=== PATIENT | female | born 1995 | race Caucasian/White ===

== ENCOUNTER 2016-10-28 12:13 | Emergency (ER) ==
[2016-10-28 12:19] VITALS: BP 133/77
[2016-10-28 12:24] LABS: URINE CULTURE PL NEEDED? NO; URINE SOURCE CLEAN CATCH
[2016-10-28 12:31] LABS: BILIRUBIN URINE NEGATIVE (NEGATIVE); BLOOD URINE 4+ (NEGATIVE); GLUCOSE URINE NEGATIVE (NEGATIVE); LEUKOCYTES URINE 1+ (NEGATIVE); NITRITE URINE NEGATIVE (NEGATIVE); PROTEIN URINE TRACE mg/dL (NEGATIVE); UROBILINOGEN URINE NORMAL
[2016-10-28 12:32] LABS: CLARITY CLEAR (CLEAR); COLOR YELLOW
[2016-10-28 12:41] LABS: URINE EPITHELIAL CELLS >10 /HPF (<10); URINE RBC TNTC /HPF (<10); URINE WBC <10 /HPF (<10)
== END 2016-10-28 18:10 | disposition left against medical advice (07) ==
LOC: P.ED 12:13
DX: N93.9 Abnormal uterine and vaginal bleeding, unspecified (principal)
CPT/HCPCS: 81001; 81025

== ENCOUNTER 2017-01-07 06:40 | Emergency (ER) ==
--- NOTE | 2017-01-07 07:30 | PROVIDER DOCUMENTATION ---
HPI-Neurological Disorder - General Chief Complaint: Syncope Stated Complaint: seizure like activity Time Seen by Provider: 01/07/17 07:08 Allergies/Adverse Reactions: Patient Allergies Allergy/AdvReac Type Severity Reaction Status Date / Time Iodinated Contrast Media - Allergy Severe HIVES Verified 07/17/16 19:29 Oral and morphine Allergy Intermediate HIVES Verified 07/17/16 19:29 cephalexin monohydrate * AdvReac VOMITING Verified 07/17/16 19:29 [From Keflex] Home Medications: Home Medication List Medication Instructions Recorded Confirmed Last Taken Type Aripiprazole 5 mg PO DAILY 01/07/17 01/07/17 01/06/17 07:00 History 5 MG Clonazepam 1 mg PO HS 01/07/17 01/07/17 01/06/17 20:00 History 1 MG Fluoxetine [Prozac] 10 mg PO DAILY 01/07/17 01/07/17 01/06/17 07:00 History 10 MG Lamotrigine 150 mg PO DAILY 01/07/17 01/07/17 01/06/17 07:00 History 150 MG - History of Present Illness-Neuro Nature of Presenting Problem: Pt had a seizure 8 month ago right after her child was born, but she didn't see anybody. This morning she had a series of seizures, without a posticatl episode that lastest about 10 minutes and presents with her boyfriend who witnessed them for evaluation. She also has migraine headaches and has one right now but she can deal with it as it is only a 3/10 [place] Review of Systems - Adult - REVIEW OF SYSTEMS - ADULT Constitutional: denies: chills, fever Eyes: denies: discharge, blurred vision Ears, Nose, Mouth & Throat: denies: ear pain, sinus problem Cardiovascular: denies: chest pain, irregular heart rate Respiratory: denies: cough, shortness of breath Gastrointestinal: denies: abdominal pain, difficulty swallowing, vomiting Genitourinary: denies: discharge, frequent UTI's Musculoskeletal: denies: bone pain, joint pain, muscle weakness Neurological: denies: dizziness/vertigo, paresthesia, syncope Psychiatric: denies: anxiety, emotional problems, insomnia Endocrine: denies: goiter, cold intolerance, heat intolerance Hematologic/Lymphatic: denies: low blood count, lymphedema Allergic/Immunologic: denies: food allergy, hay fever, hives Past History - Adult - PAST MEDICAL HISTORY-ADULT Review of Records: reports: Nursing Assessment Review, Medications Reviewed Major Childhood Illnesses: reports: denies history Cardiovascular: reports: denies history Respiratory: reports: denies history Gastrointestinal: reports: denies history Obstetrical/Gynecological: reports: denies history Genitourinary: reports: denies history Musculoskeletal: reports: denies history Neurological: reports: denies history Psychiatric: reports: anxiety, depression Endocrine/Immune: reports: denies history Other Conditions: reports: denies history - PRIOR SURGERIES/PROCEDURES Surgical/Procedure History: reports: other (wisdom teeth) - IMMUNIZATION STATUS Childhood Immunizations: See Nurse Assessment Flu Vaccine: See Nurse Assessment - FAMILY HISTORY Family History: reviewed, not pertinent Physical Exam- Neurological - Physical Exam-Neuro Initial Vital Signs Reviewed: Yes General Appearance: appears well, alert, no apparent distress Eye Exam: bilateral eye: normal inspection, PERRL, EOMI HENMT: normocephalic/atraumatic, moist mucous membranes, normal ENT inspection Head Injury: no evidence of injury Neck: non-tender, full range of motion, supple, normal inspection Respiratory: chest non-tender, lungs clear, normal breath sounds, no pleuratic chest pain, no respiratory distress, no accessory muscle use Cardiovascular: normal peripheral pulses, regular rate, rhythm, no edema, no gallop, no JVD, no murmur Abdominal Exam: normal bowel sounds, non tender, soft, no organomegaly, no pulsatile mass, Beck's sign Lymphatic: no adenopathy Extremity: normal range of motion, non-tender, normal gait, normal inspection email marketing coordinator Exam: normal hearing, normal speech, PERRL Coordination/Gait: normal finger to nose, normal gait Motor/Sensory: no motor deficit, no sensory deficit Neurologic: email marketing coordinator II-XII nml as tested, grossly normal, no motor/sensory deficits Integumentary: normal color, normal turgor, warm/dry Psych/Mental Status: normal mood/affect, normal thought content, normal thought process, oriented x 3 Progress - PLAN OF CARE/RESULTS Progress/Plan/Lab Results: CT and abdominal US- wnl\ The nurse noted some more spells which immediately stopped when given a sterna l rub all compatible with psudo seizures, Pt has anxiety/depression/ bipolar/ and severe insomnia Laboratory Tests 01/07/17 01/07/17 01/07/17 06:53 08:41 08:41 WBC RBC Hgb Hct MCV MCH MCHC RDW Std Deviation Plt Count MPV Immature Gran % (Auto) Neut % (Auto) Lymph % (Auto) [place] % (Auto) Eos % (Auto) Baso % (Auto) Immature Gran # (Auto) Neut # (Auto) Lymph # (Auto) [place] # (Auto) Eos # (Auto) Baso # (Auto) Sodium Potassium Chloride Carbon Dioxide Anion Gap BUN Creatinine Estimated GFR/1.73 m2 BUN/Creatinine Ratio Glucose POC Glucose 94 Calculated Osmolality Calcium Total Bilirubin AST ALT Alkaline Phosphatase Total Protein Albumin Globulin Albumin/Globulin Ratio Urine Source CLEAN CATCH Urine Color STRAW Urine Turbidity CLEAR Urine pH 6.0 Ur Specific [place] 1.011 Urine Protein NEGATIVE Ur Glucose (Stick) NEGATIVE Ur Ketones (Stick) NEGATIVE Urine Blood NEGATIVE Urine Nitrite NEGATIVE Urine Bilirubin NEGATIVE Urobilinogen Dipstick NORMAL Urine Leukocytes NEGATIVE Urine WBC (Auto) <10 Urine RBC (Auto) <10 U Epithel Cells (Auto) <10 Urine Bacteria (Auto) NEGATIVE Urine Opiates Screen NONE DETECTED Ur Oxycodone Screen NONE DETECTED Ur Methadone, Qual NONE DETECTED Ur Barbiturates Screen NONE DETECTED Ur Phencyclidine Scrn NONE DETECTED Ur Amphetamines Screen NONE DETECTED U Benzodiazepines Scrn NONE DETECTED Urine Cocaine Screen NONE DETECTED U Cannabinoids Screen NONE DETECTED 01/07/17 01/07/17 09:08 09:08 WBC 5.58 RBC 4.78 Hgb 13.6 Hct 40.6 MCV 84.9 MCH 28.5 MCHC 33.5 RDW Std Deviation 13.1 Plt Count 317 MPV 9.8 Immature Gran % (Auto) 0.0 Neut % (Auto) 50.7 Lymph % (Auto) 36.7 [place] % (Auto) 5.4 Eos % (Auto) 6.8 Baso % (Auto) 0.4 Immature Gran # (Auto) 0.00 Neut # (Auto) 2.83 Lymph # (Auto) 2.05 [place] # (Auto) 0.30 Eos # (Auto) 0.38 Baso # (Auto) 0.02 Sodium 141 Potassium 4.3 Chloride 104 Carbon Dioxide 25 Anion Gap 12 BUN 10 Creatinine 0.7 Estimated GFR/1.73 m2 > 60 BUN/Creatinine Ratio 14 Glucose 82 POC Glucose Calculated Osmolality 279 Calcium 9.2 Total Bilirubin 0.23 AST 13 ALT 16 Alkaline Phosphatase 69 Total Protein 7.7 Albumin 4.4 Globulin 3.3 Albumin/Globulin Ratio 1.3 Urine Source Urine Color Urine Turbidity Urine pH Ur Specific [place] Urine Protein Ur Glucose (Stick) Ur Ketones (Stick) Urine Blood Urine Nitrite Urine Bilirubin Urobilinogen Dipstick Urine Leukocytes Urine WBC (Auto) Urine RBC (Auto) U Epithel Cells (Auto) Urine Bacteria (Auto) Urine Opiates Screen Ur Oxycodone Screen Ur Methadone, Qual Ur Barbiturates Screen Ur Phencyclidine Scrn Ur Amphetamines Screen U Benzodiazepines Scrn Urine Cocaine Screen U Cannabinoids Screen Orders Category Date Time Status ED: Urine Bedside ORDERED Care 01/07/17 07:25 Active HEAD W/O CONTRAST [CT] Stat Exams 01/07/17 07:46 Draft US ABDOMEN-COMPLETE [US] Stat Exams 01/07/17 07:22 Draft CBC WITH ELECTRONIC DIFF [HEME] Stat Lab 01/07/17 09:08 Completed CMP [COMPREHENSIVE METABOLIC PANEL] [CHEM] Stat Lab 01/07/17 09:08 Completed PROLACTIN [HH] Stat Lab 01/07/17 09:08 Received UA NIMS W/REFLEX CULT [URINALYSIS] Stat Lab 01/07/17 08:41 Completed UDS [URINE DRUG SCREEN] Stat Lab 01/07/17 08:41 Completed EKG [EKG] Stat Ther 01/07/17 06:49 Ordered Vital Signs Temp Pulse Resp BP Pulse Ox 01/07/17 09:32 83 22 119/53 99 01/07/17 06:44 97.7 F 83 18 122/65 100 Iodinated Contrast Media - Oral and Allergy (Severe, Verified 07/17/16 19:29) HIVES morphine Allergy (Intermediate, Verified 07/17/16 19:29) HIVES cephalexin monohydrate * [From [facility]] Adverse Reaction (Verified 07/17/16 19:29 ) VOMITING Aripiprazole 5 mg PO DAILY 01/07/17 Clonazepam 1 mg PO HS 01/07/17 Fluoxetine [Prozac] 10 mg PO DAILY 01/07/17 Lamotrigine 150 mg PO DAILY 01/07/17 Laboratory 01/07/17 01/07/17 01/07/17 09:08 09:08 08:41 WBC 5.58 RBC 4.78 Hgb 13.6 Hct 40.6 MCV 84.9 MCH 28.5 MCHC 33.5 RDW Std Deviation 13.1 Plt Count 317 MPV 9.8 Immature Gran % (Auto) 0.0 Neut % (Auto) 50.7 Lymph % (Auto) 36.7 [place] % (Auto) 5.4 Eos % (Auto) 6.8 Baso % (Auto) 0.4 Immature Gran # (Auto) 0.00 Neut # (Auto) 2.83 Lymph # (Auto) 2.05 [place] # (Auto) 0.30 Eos # (Auto) 0.38 Baso # (Auto) 0.02 Sodium 141 Potassium 4.3 Chloride 104 Carbon Dioxide 25 Anion Gap 12 BUN 10 Creatinine 0.7 Estimated GFR/1.73 m2 > 60 BUN/Creatinine Ratio 14 Glucose 82 POC Glucose Calculated Osmolality 279 Calcium 9.2 Total Bilirubin 0.23 AST 13 ALT 16 Alkaline Phosphatase 69 Total Protein 7.7 Albumin 4.4 Globulin 3.3 Albumin/Globulin Ratio 1.3 Urine Source Urine Color Urine Turbidity Urine pH Ur Specific [place] Urine Protein Ur Glucose (Stick) Ur Ketones (Stick) Urine Blood Urine Nitrite Urine Bilirubin Urobilinogen Dipstick Urine Leukocytes Urine WBC (Auto) Urine RBC (Auto) U Epithel Cells (Auto) Urine Bacteria (Auto) Urine Opiates Screen NONE DETECTED Ur Oxycodone Screen NONE DETECTED Ur Methadone, Qual NONE DETECTED Ur Barbiturates Screen NONE DETECTED Ur Phencyclidine Scrn NONE DETECTED Ur Amphetamines Screen NONE DETECTED U Benzodiazepines Scrn NONE DETECTED Urine Cocaine Screen NONE DETECTED U Cannabinoids Screen NONE DETECTED 01/07/17 01/07/17 08:41 06:53 WBC RBC Hgb Hct MCV MCH MCHC RDW Std Deviation Plt Count MPV Immature Gran % (Auto) Neut % (Auto) Lymph % (Auto) [place] % (Auto) Eos % (Auto) Baso % (Auto) Immature Gran # (Auto) Neut # (Auto) Lymph # (Auto) [place] # (Auto) Eos # (Auto) Baso # (Auto) Sodium Potassium Chloride Carbon Dioxide Anion Gap BUN Creatinine Estimated GFR/1.73 m2 BUN/Creatinine Ratio Glucose POC Glucose 94 Calculated Osmolality Calcium Total Bilirubin AST ALT Alkaline Phosphatase Total Protein Albumin Globulin Albumin/Globulin Ratio Urine Source CLEAN CATCH Urine Color STRAW Urine Turbidity CLEAR Urine pH 6.0 Ur Specific [place] 1.011 Urine Protein NEGATIVE Ur Glucose (Stick) NEGATIVE Ur Ketones (Stick) NEGATIVE Urine Blood NEGATIVE Urine Nitrite NEGATIVE Urine Bilirubin NEGATIVE Urobilinogen Dipstick NORMAL Urine Leukocytes NEGATIVE Urine WBC (Auto) <10 Urine RBC (Auto) <10 U Epithel Cells (Auto) <10 Urine Bacteria (Auto) NEGATIVE Urine Opiates Screen Ur Oxycodone Screen Ur Methadone, Qual Ur Barbiturates Screen Ur Phencyclidine Scrn Ur Amphetamines Screen U Benzodiazepines Scrn Urine Cocaine Screen U Cannabinoids Screen Departure - Departure Time of Disposition Order: 10:20 DIAGNOSIS: Psychiatric pseudoseizure Disposition: HOME 01 Certified Medical Emergency: Emergent Condition: Stable Additional Instructions: fu with psychiatry and Dr Bolanos for confrimation ED Follow Up Instructions: You have been treated by a care provider in the Emergency Department. These instructions are being provided to you so you can have an understanding of how to care for yourself upon discharge. Upon discharge from the Emergency Department, you are responsible for making arrangements for follow-up care by a physician of your choice. Take all prescribed medications as directed. Return to the Emergency Department immediately for any new or worsening symptoms. You may call the Physician Referral phone number at [phone] to obtain a list of Physicians who are taking new patients.
--- NOTE | 2017-01-07 08:56 | ED EKG INTERP ---
EKG Interpretation - EKG Time of EKG reading by physician:: 06:52 EKG Read and Signed by:: Jose Bautista EKG Interpretation (*Must complete 3 of following elements*): Abnormal Rate: 75 Rhythm: nsr with sinus arrhythmia [place]: normal ST Wave: normal
[2017-01-07 09:09] LABS: URINE CULTURE NEEDED? NO; URINE MICRO REVIEW NEEDED? NO; URINE SOURCE CLEAN CATCH
--- NOTE | 2017-01-07 09:10 | Diag Imaging Result Document ---
PROCEDURE NAME: US ABDOMEN-COMPLETE - 01/07/2017 COMPLETE ABDOMINAL ULTRASOUND: COMPARISON: 04/22/2016. FINDINGS: The gallbladder appears normal with no stones, wall thickening, or pericholecystic fluid. The common bile duct is normal in diameter. Sonographic Beck's sign was reported to be negative. The pancreatic tail and part of the pancreatic body is obscured due to bowel gas. The visualized portion of the pancreas is unremarkable. The aorta is partially obscured by bowel gas. The visualized portion is unremarkable. The liver, spleen, and kidneys are grossly unremarkable. IMPRESSION: Essentially unremarkable abdominal ultrasound.
[2017-01-07 09:14] LABS: BILIRUBIN URINE NEGATIVE (NEGATIVE); BLOOD URINE NEGATIVE (NEGATIVE); COLOR STRAW; GLUCOSE URINE NEGATIVE (NEGATIVE); LEUKOCYTES URINE NEGATIVE (NEGATIVE); NITRITE URINE NEGATIVE (NEGATIVE); PROTEIN URINE NEGATIVE (NEGATIVE); SP GRAVITY URINE 1.011; TURBIDITY URINE CLEAR (CLEAR); UROBILINOGEN URINE NORMAL (NORMAL)
[2017-01-07 09:16] LABS: UR EPITHELIAL CELLS <10 /HPF (<10); URINE BACTERIA NEGATIVE /HPF; URINE RBC <10 /HPF (<10); URINE WBC <10 /HPF (<10)
[2017-01-07 09:22] LABS: MANUAL DIFF NEEDED? NO
[2017-01-07 09:24] LABS: UR AMPHETAMINES QUAL NONE DETECTED (NONE DETECT); UR BARBITUATES QUAL NONE DETECTED (NONE DETECT); UR BENZODIAZEPIN QUAL NONE DETECTED (NONE DETECT); UR CANNABINOIDS QUAL NONE DETECTED (NONE DETECT); UR COCAINE QUAL NONE DETECTED (NONE DETECT); UR METHADONE QUAL NONE DETECTED (NONE DETECT); UR OPIATES QUAL NONE DETECTED (NONE DETECT); UR OXYCODONE QUAL NONE DETECTED (NONE DETECT); UR PCP QUAL NONE DETECTED (NONE DETECT)
[2017-01-07 09:28] LABS: BASO% 0.4 % (0.0-0.8); EOS# 0.38 X1000 (0.0-0.7); EOS% 6.8 % (0.0-10.0); HEMATOCRIT 40.6 % (37.0-47.0); HEMOGLOBIN 13.6 g/dL (12.0-16.0); LYMPH# 2.05 X1000 (1.2-3.4); LYMPH% 36.7 % (20.5-51.1); MCH 28.5 PG (27-31); MCHC 33.5 g/dL (33-37); MCV 84.9 FL (81-99); MONO% 5.4 % (1.7-9.3); MPV 9.8 FL (7.4-10.4); NEUT% 50.7 % (42.2-75.2); PLT 317 X1000 (130-400); RBC 4.78 XMIL (4.2-5.4)
--- NOTE | 2017-01-07 09:37 | Diag Imaging Result Document ---
PROCEDURE NAME: HEAD W/O CONTRAST - 01/07/[address], 01/07/2017: A CT dose reduction protocol was used. COMPARISON: 07/12/2016 FINDINGS: The ventricles and sulci are normal in size and contour. There is no mass, hemorrhage, or evidence of acute ischemia. The bony calvaria is intact. The visualized paranasal sinuses and mastoid air cells are clear. IMPRESSION: Negative head CT. MTDD
[2017-01-07 09:49] LABS: AGAP 12; ALBUMIN 4.4 g/dL (3.5-5.0); ALKALINE PHOSPHATASE 69 U/L (32-104); BUN 10 mg/dL (8-22); CALCIUM 9.2 mg/dL (8.8-10.2); CHLORIDE 104 mmol/L (98-107); COSMO 279; GOT 13 U/L (10-30); GPT 16 U/L (10-36); POTASSIUM 4.3 mmol/L (3.5-5.1); SODIUM 141 mmol/L (136-145); TCO2 25 mmol/L (25-35); TOTAL BILIRUBIN 0.23 mg/dL (0.20-1.00); TOTAL PROTEIN 7.7 g/dL (6.3-8.3)
[2017-01-07 10:39] VITALS: BP 132/81
--- NOTE | 2017-01-07 11:20 | EKG Report ---
Test Performed on : 01/07/2017 06:52:26 AM Test Reason : syncope Blood Pressure : / mmHG Vent. Rate : 075 BPM Atrial Rate : 075 BPM P-R Int : 162 ms QRS Dur : 090 ms QT Int : 366 ms P-R-T Axes : 021 025 035 degrees QTc Int : 408 ms Normal sinus rhythm. with sinus arrhythmia. Septal infarct , age undetermined Abnormal ECG When compared with ECG of 24-SEP-2015 21:14, No significant change was found Unconfirmed Result
== END 2017-01-07 10:39 | disposition home or self-care (01) ==
LOC: ED 06:40
DX: G40.89 Other seizures (principal); R94.31 Abnormal electrocardiogram [ECG] [EKG]; R55 Syncope and collapse; R51 Headache; F41.9 Anxiety disorder, unspecified; F32.9 Major depressive disorder, single episode, unspecified; Z79.899 Other long term (current) drug therapy
CPT/HCPCS: 70450; 76700; 80053; 81001; 82948; 84146; 85025; 93005; G0480; 80324; 80345; 80346; 80349; 80353; 80358; 80361; 80365; 83992

== ENCOUNTER 2017-01-14 08:51 | Emergency (ER) ==
[2017-01-14] MEDS ORDERED: ATIVAN ONE (08:53)
[2017-01-14] MEDS ORDERED: ATIVAN IV ONE ×2 (09:14→10:00)
[2017-01-14 09:34] LABS: MANUAL DIFF NEEDED? NO
[2017-01-14 09:38] LABS: BASO% 0.3 % (0.0-0.8); EOS# 0.34 X1000 (0.0-0.7); EOS% 3.3 % (0.0-10.0); HEMATOCRIT 39.2 % (37.0-47.0); HEMOGLOBIN 13.4 g/dL (12.0-16.0); LYMPH# 2.85 X1000 (1.2-3.4); MCH 29.3 PG (27-31); MCHC 34.2 g/dL (33-37); MCV 85.8 FL (81-99); MONO# 0.62 X1000 (0.11-0.59); MONO% 6.1 % (1.7-9.3); MPV 9.6 FL (7.4-10.4); NEUT% 62.3 % (42.2-75.2); PLT 308 X1000 (130-400); RBC 4.57 XMIL (4.2-5.4)
[2017-01-14 09:49] LABS: AGAP 11; ALBUMIN 4.4 g/dL (3.5-5.0); ALKALINE PHOSPHATASE 65 U/L (32-104); BUN 10 mg/dL (8-22); CHLORIDE 103 mmol/L (98-107); COSMO 276; GOT 13 U/L (10-30); GPT 13 U/L (10-36); POTASSIUM 4.3 mmol/L (3.5-5.1); SODIUM 139 mmol/L (136-145); TCO2 25 mmol/L (25-35); TOTAL BILIRUBIN 0.17 mg/dL (0.20-1.00); TOTAL PROTEIN 7.1 g/dL (6.3-8.3)
--- NOTE | 2017-01-14 10:01 | PROVIDER DOCUMENTATION ---
HPI-Neurological Disorder - General Chief Complaint: Seizure Stated Complaint: SEIZURE Time Seen by Provider: 01/14/17 09:58 Source: family Allergies/Adverse Reactions: Patient Allergies Allergy/AdvReac Type Severity Reaction Status Date / Time Iodinated Contrast Media - Allergy Severe HIVES Verified 01/14/17 09:08 Oral and morphine Allergy Intermediate HIVES Verified 01/14/17 09:08 cephalexin monohydrate * AdvReac VOMITING Verified 01/14/17 09:08 [From FRESS] Home Medications: Home Medication List Medication Instructions Recorded Confirmed Last Taken Type Aripiprazole 5 mg PO DAILY 01/07/17 01/14/17 01/13/17 History Clonazepam 1 mg PO HS 01/07/17 01/14/17 01/13/17 History Fluoxetine [Prozac] 10 mg PO DAILY 01/07/17 01/14/17 01/13/17 History Lamotrigine 150 mg PO DAILY 01/07/17 01/14/17 01/13/17 History Nitrofurantoin Macrocrystal 100 mg PO Q12HR #14 capsule 01/14/17 Unknown Rx [Nitrofurantoin] - History of Present Illness-Neuro Nature of Presenting Problem: "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 THEY SAY THIS IS BECAUSE OF STRESS AND IT'S CALLED PSEUDO SEZURES." Headache Location: reports: frontal Onset/Duration: reports: other ([place] 0430 THIS MORNING.) Context: reports: none Approximate time patient was last seen normal?: 04:15 Character of Altered Mental Status: reports: other (JERKING MOTION OF UPPER BODY AND EYE LIDS FLUTTERING) Character of Deficits: denies: new weakness, altered sensation New weakness or altered sensation location:: reports: none Cognitive Baseline: other (ALERT- SHAKES HEAD YES AND NO TO QUESTIONS ASKED) Associated Symptoms: reports: denies symptoms Similar Symptoms Previously?: Yes (PSEUDO SEIZURES) Recently seen or treated by another doctor?: Yes (SEEN IN THIS ER RECENTLY ) - Seizure First time to have a seizure?: No Witnessed seizure?: Yes Approximate time seizures began?: 04:30 (REPORTS CONSTANT SINCE ONSET ) Episode Frequency: occasional episodes Status Epilepticus: No Preceding symptoms/context:: other (NO KNOWN PRECIPITATING FACTORS) Character of Seizure: reports: other (SHAKING OF UPPER BODY AND EYES FLUTTERING) . denies: lost consciousness, shaking in one area, staring, incontinent of urine, incontinent of stool, stopped breathing Seizure related injury: none Review of Systems - Adult - REVIEW OF SYSTEMS - ADULT Constitutional: reports: see HPI Eyes: reports: no symptoms reported Ears, Nose, Mouth & Throat: reports: no symptoms reported Cardiovascular: reports: no symptoms reported Respiratory: reports: no symptoms reported Gastrointestinal: reports: no symptoms reported Genitourinary: reports: no symptoms reported Neurological: reports: no symptoms reported Psychiatric: reports: anxiety, depression, suicidal thoughts Endocrine: reports: no symptoms reported Hematologic/Lymphatic: reports: no symptoms reported Allergic/Immunologic: reports: no symptoms reported All Other Systems: Reviewed and Negative Past History - Adult - PAST MEDICAL HISTORY-ADULT Review of Records: reports: Old Records Reviewed, Nursing Assessment Review, Medications Reviewed, Social history reviewed & non-contributory. Major Childhood Illnesses: reports: denies history Cardiovascular: reports: denies history Respiratory: reports: denies history Gastrointestinal: reports: denies history Obstetrical/Gynecological: reports: denies history Genitourinary: reports: denies history Musculoskeletal: reports: denies history Neurological: reports: other (PSEUOD SEIZURES) Psychiatric: reports: anxiety, depression, suicide attempt Endocrine/Immune: reports: denies history Other Conditions: reports: denies history - PRIOR SURGERIES/PROCEDURES Surgical/Procedure History: reports: other (wisdom teeth) - PRIOR HOSPITALIZATIONS Prior Hospitalizations: reports: psychiatric or rehab - IMMUNIZATION STATUS Childhood Immunizations: See Nurse Assessment Flu Vaccine: See Nurse Assessment - FAMILY HISTORY Family History: reviewed, not pertinent - SOCIAL HISTORY Smoking: denies Substance Use: none/never Alcohol Use Frequency: never Living Situation: family Physical Exam- Neurological - Physical Exam-Neuro Initial Vital Signs Reviewed: Yes General Appearance: other ( EYES FLUTTERING, UPPER BODY JERKING. ON PLACING ARM ABOVE FACE, PATIENT MOVE ARM TO NOT HIT SELF. 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: normal hearing, normal speech, PERRL Neurologic: grossly normal Integumentary: normal color, normal turgor, warm/dry Psych/Mental Status: anxious - Glascow Coma Scale Best Eye Response: (4) open spontaneously Best Verbal Response: (3) inappropriate words Best Motor Response: (6) obeys commands Progress - PLAN OF CARE/RESULTS Progress/Plan/Lab Results: Vital Signs Pulse Resp BP Pulse Ox 01/14/17 12:15 81 18 86/51 96 01/14/17 11:18 85 16 96/52 96 01/14/17 08:55 96 H 20 121/80 100 Iodinated Contrast Media - Oral and Allergy (Severe, Verified 01/14/17 09:08) HIVES morphine Allergy (Intermediate, Verified 01/14/17 09:08) HIVES cephalexin monohydrate * [From FRESS] Adverse Reaction (Verified 01/14/17 09:08 ) VOMITING Aripiprazole 5 mg PO DAILY 01/07/17 Clonazepam 1 mg PO HS 01/07/17 Fluoxetine [Prozac] 10 mg PO DAILY 01/07/17 Lamotrigine 150 mg PO DAILY 01/07/17 Nitrofurantoin Macrocrystal [Nitrofurantoin] 100 mg PO Q12HR #14 capsule I&O 01/13/17 01/14/17 01/15/17 06:59 06:59 06:59 Output Total 100 Balance -100 Laboratory 01/14/17 01/14/17 01/14/17 10:04 10:04 10:04 WBC RBC Hgb Hct MCV MCH MCHC RDW Std Deviation Plt Count MPV Immature Gran % (Auto) Neut % (Auto) Lymph % (Auto) [place] % (Auto) Eos % (Auto) Baso % (Auto) Immature Gran # (Auto) Neut # (Auto) Lymph # (Auto) [place] # (Auto) Eos # (Auto) Baso # (Auto) Sodium Potassium Chloride Carbon Dioxide Anion Gap BUN Creatinine Estimated GFR/1.73 m2 BUN/Creatinine Ratio Glucose Calculated Osmolality Calcium Total Bilirubin AST ALT Alkaline Phosphatase Total Protein Albumin Globulin Albumin/Globulin Ratio Vitamin B12 TSH Free T4 Urine Source CLEAN CATCH Urine Color YELLOW Urine Turbidity HAZY Urine pH 5.5 Ur Specific [place] 1.026 Urine Protein NEGATIVE Ur Glucose (Stick) NEGATIVE Ur Ketones (Stick) NEGATIVE Urine Blood NEGATIVE Urine Nitrite NEGATIVE Urine Bilirubin NEGATIVE Urobilinogen Dipstick NORMAL Urine Leukocytes LARGE A Urine WBC (Auto) 10-20 A Urine RBC (Auto) <10 U Epithel Cells (Auto) >10 A Urine Bacteria (Auto) 2+ Urine Test NEGATIVE Urine Opiates Screen NONE DETECTED Ur Oxycodone Screen NONE DETECTED Ur Methadone, Qual NONE DETECTED Ur Barbiturates Screen NONE DETECTED Ur Phencyclidine Scrn NONE DETECTED Ur Amphetamines Screen NONE DETECTED U Benzodiazepines Scrn NONE DETECTED Urine Cocaine Screen NONE DETECTED U Cannabinoids Screen NONE DETECTED Plasma/Serum Ethyl Alc 01/14/17 01/14/17 01/14/17 08:58 08:58 08:58 WBC 10.17 RBC 4.57 Hgb 13.4 Hct 39.2 MCV 85.8 MCH 29.3 MCHC 34.2 RDW Std Deviation 13.0 Plt Count 308 MPV 9.6 Immature Gran % (Auto) 0.0 Neut % (Auto) 62.3 Lymph % (Auto) 28.0 [place] % (Auto) 6.1 Eos % (Auto) 3.3 Baso % (Auto) 0.3 Immature Gran # (Auto) 0.00 Neut # (Auto) 6.33 Lymph # (Auto) 2.85 [place] # (Auto) 0.62 H Eos # (Auto) 0.34 Baso # (Auto) 0.03 Sodium 139 Potassium 4.3 Chloride 103 Carbon Dioxide 25 Anion Gap 11 BUN 10 Creatinine 0.7 Estimated GFR/1.73 m2 > 60 BUN/Creatinine Ratio 14 Glucose 80 Calculated Osmolality 276 Calcium 9.0 Total Bilirubin 0.17 L AST 13 ALT 13 Alkaline Phosphatase 65 Total Protein 7.1 Albumin 4.4 Globulin 2.7 Albumin/Globulin Ratio 1.6 Vitamin B12 681 TSH 0.85 Free T4 1.22 Urine Source Urine Color Urine Turbidity Urine pH Ur Specific [place] Urine Protein Ur Glucose (Stick) Ur Ketones (Stick) Urine Blood Urine Nitrite Urine Bilirubin Urobilinogen Dipstick Urine Leukocytes Urine WBC (Auto) Urine RBC (Auto) U Epithel Cells (Auto) Urine Bacteria (Auto) Urine Test Urine Opiates Screen Ur Oxycodone Screen Ur Methadone, Qual Ur Barbiturates Screen Ur Phencyclidine Scrn Ur Amphetamines Screen U Benzodiazepines Scrn Urine Cocaine Screen U Cannabinoids Screen Plasma/Serum Ethyl Alc 01/14/17 08:58 WBC RBC Hgb Hct MCV MCH MCHC RDW Std Deviation Plt Count MPV Immature Gran % (Auto) Neut % (Auto) Lymph % (Auto) [place] % (Auto) Eos % (Auto) Baso % (Auto) Immature Gran # (Auto) Neut # (Auto) Lymph # (Auto) [place] # (Auto) Eos # (Auto) Baso # (Auto) Sodium Potassium Chloride Carbon Dioxide Anion Gap BUN Creatinine Estimated GFR/1.73 m2 BUN/Creatinine Ratio Glucose Calculated Osmolality Calcium Total Bilirubin AST ALT Alkaline Phosphatase Total Protein Albumin Globulin Albumin/Globulin Ratio Vitamin B12 TSH Free T4 Urine Source Urine Color Urine Turbidity Urine pH Ur Specific [place] Urine Protein Ur Glucose (Stick) Ur Ketones (Stick) Urine Blood Urine Nitrite Urine Bilirubin Urobilinogen Dipstick Urine Leukocytes Urine WBC (Auto) Urine RBC (Auto) U Epithel Cells (Auto) Urine Bacteria (Auto) Urine Test Urine Opiates Screen Ur Oxycodone Screen Ur Methadone, Qual Ur Barbiturates Screen Ur Phencyclidine Scrn Ur Amphetamines Screen U Benzodiazepines Scrn Urine Cocaine Screen U Cannabinoids Screen Plasma/Serum Ethyl Alc UTI. PSEUDO SEIZURES RELIEVED BY ATIVAN. DISCUSSED AT LENGTH WITH MOTHER--TO FOLLOW UP WITH BEHAVIORAL HEALTH TODAY AND PCP ON WEDNESDAY SCHEDULED. Departure - Departure Time of Disposition Order: 12:22 DIAGNOSIS: Seizure-like activity Disposition: HOME 01 Certified Medical Emergency: Emergent Condition: Stable Additional Instructions: FOLLOW UP WITH BEHAVIORAL SOON POSSIBLE. TAKE ALL OF ANTIBIOTIC. INCREASE FLUIDS AND REST. HAVE URINE REHCHECKED WHEN ANTIBIOTIC IS COMPLETED. RETURN TO ER FOR ANY WORSENING SYMPTOMS. ED Follow Up Instructions: You have been treated by a care provider in the Emergency Department. These instructions are being provided to you so you can have an understanding of how to care for yourself upon discharge. Upon discharge from the Emergency Department, you are responsible for making arrangements for follow-up care by a physician of your choice. Take all prescribed medications as directed. Return to the Emergency Department immediately for any new or worsening symptoms. You may call the Physician Referral phone number at [phone] to obtain a list of Physicians who are taking new patients. Prescriptions: Nitrofurantoin Macrocrystal [Nitrofurantoin] 100 mg PO Q12HR #14 capsule Referrals: None,PCP [Primary Care Provider] -
[2017-01-14 10:15] LABS: FREE T4 1.22 ng/dL (0.93-1.70)
[2017-01-14 10:26] LABS: URINE MICRO REVIEW NEEDED? NO; URINE SOURCE CLEAN CATCH
[2017-01-14 10:36] LABS: BILIRUBIN URINE NEGATIVE (NEGATIVE); BLOOD URINE NEGATIVE (NEGATIVE); COLOR YELLOW; GLUCOSE URINE NEGATIVE (NEGATIVE); LEUKOCYTES URINE LARGE (NEGATIVE); NITRITE URINE NEGATIVE (NEGATIVE); PH URINE 5.5; PROTEIN URINE NEGATIVE (NEGATIVE); SP GRAVITY URINE 1.026; TURBIDITY URINE HAZY (CLEAR); UROBILINOGEN URINE NORMAL (NORMAL)
[2017-01-14 10:39] LABS: UR EPITHELIAL CELLS >10 /HPF (<10); URINE BACTERIA 2+ /HPF; URINE CULTURE NEEDED? YES; URINE RBC <10 /HPF (<10)
[2017-01-14 10:54] LABS: UR AMPHETAMINES QUAL NONE DETECTED (NONE DETECT); UR BARBITUATES QUAL NONE DETECTED (NONE DETECT); UR BENZODIAZEPIN QUAL NONE DETECTED (NONE DETECT); UR CANNABINOIDS QUAL NONE DETECTED (NONE DETECT); UR COCAINE QUAL NONE DETECTED (NONE DETECT); UR METHADONE QUAL NONE DETECTED (NONE DETECT); UR OPIATES QUAL NONE DETECTED (NONE DETECT); UR OXYCODONE QUAL NONE DETECTED (NONE DETECT); UR PCP QUAL NONE DETECTED (NONE DETECT)
[2017-01-14 12:25] VITALS: BP 86/51
== END 2017-01-14 13:20 | disposition home or self-care (01) ==
LOC: ED 08:51
DX: G40.89 Other seizures (principal); R07.89 Other chest pain; F41.9 Anxiety disorder, unspecified; F32.9 Major depressive disorder, single episode, unspecified; Z79.899 Other long term (current) drug therapy
CPT/HCPCS: 80053; 81001; 81025; 82607; 84439; 84443; 85025; 87088; 96374; 96376; G0480; J2060; 80320; 80324; 80345; 80346; 80349; 80353; 80358; 80361; 80365; 83992

== ENCOUNTER 2017-02-10 09:10 | Observation (INO) ==
[2017-02-10] MEDS ORDERED: ATIVAN IV ONE (09:13)
[2017-02-10 09:29] LABS: URINE CULTURE PL NEEDED? NO
[2017-02-10 09:42] LABS: MANUAL DIFF NEEDED? NO
[2017-02-10 09:43] LABS: BASO% 0.3 % (0.0-0.8); EOS% 4.7 % (0.0-10.0); HEMATOCRIT 41.6 % (37.0-47.0); IMM GRAN# 0.02 X1000 (0.0-0.04); IMM GRAN% 0.2 % (0.0-0.5); LYMPH# 2.58 X1000 (1.2-3.4); MCHC 33.7 g/dL (33-37); MCV 86.1 FL (81-99); MONO# 0.51 X1000 (0.11-0.59); MONO% 5.9 % (1.7-9.3); MPV 9.6 FL (7.4-10.4); NEUT% 58.9 % (42.2-75.2); PLT 327 X1000 (130-400); RBC 4.83 XMIL (4.2-5.4)
[2017-02-10 09:44] LABS: AGAP 17; ALBUMIN 4.7 g/dL (3.5-5.0); ALKALINE PHOSPHATASE 76 U/L (32-104); BUN 9 mg/dL (8-22); CALCIUM 9.6 mg/dL (8.8-10.2); CHLORIDE 104 mmol/L (98-107); COSMO 280; GOT 18 U/L (10-30); GPT 11 U/L (10-36); POTASSIUM 4.7 mmol/L (3.5-5.1); SODIUM 141 mmol/L (136-145); TCO2 20 mmol/L (25-35); TOTAL PROTEIN 7.7 g/dL (6.3-8.3)
[2017-02-10 09:52] LABS: BILIRUBIN URINE NEGATIVE (NEGATIVE); BLOOD URINE NEGATIVE (NEGATIVE); CLARITY SL. CLOUDY (CLEAR); COLOR YELLOW; GLUCOSE URINE NEGATIVE (NEGATIVE); LEUKOCYTES URINE NEGATIVE (NEGATIVE); NITRITE URINE NEGATIVE (NEGATIVE); PROTEIN URINE NEGATIVE (NEGATIVE); UROBILINOGEN URINE NORMAL
[2017-02-10 09:53] LABS: URINE EPITHELIAL CELLS <10 /HPF (<10); URINE SOURCE CATH; URINE WBC <10 /HPF (<10)
[2017-02-10] MEDS ORDERED: NS 2,000 ML IV ONE (11:28)
[2017-02-10 11:53] LABS: UR AMPHETAMINES QUAL NONE DETECTED (NONE DETECT); UR BARBITUATES QUAL NONE DETECTED (NONE DETECT); UR BENZODIAZEPIN QUAL PRESUMPTIVE POSITIVE (NONE DETECT); UR CANNABINOIDS QUAL NONE DETECTED (NONE DETECT); UR COCAINE QUAL NONE DETECTED (NONE DETECT); UR MDMA QUAL NONE DETECTED (NONE DETECT); UR METHADONE QUAL NONE DETECTED (NONE DETECT); UR METHAMPHETAMINE QUAL NONE DETECTED (NONE DETECT); UR OPIATES QUAL NONE DETECTED (NONE DETECT); UR OXYCODONE QUAL NONE DETECTED (NONE DETECT); UR PCP QUAL PRESUMPTIVE POSITIVE (NONE DETECT); UR TCA QUAL NONE DETECTED (NONE DETECT)
--- NOTE | 2017-02-10 12:45 | PROVIDER DOCUMENTATION ---
This chart was entered by Iram Galindo Scribe, acting as scribe for Jose Bautista MD. HPI-Neurological Disorder - General Chief Complaint: Seizure Stated Complaint: seizure Time Seen by Provider: 02/10/17 09:12 Source: patient, EMS Allergies/Adverse Reactions: Patient Allergies Allergy/AdvReac Type Severity Reaction Status Date / Time peanut Allergy Severe ANAPHYLAXIS Verified 01/25/17 14:19 morphine Allergy Intermediate HIVES Verified 01/25/17 14:19 Iodinated Contrast Media - Allergy Mild HIVES Verified 01/25/17 14:19 Oral and nut - unspecified Allergy ANAPHYLAXIS Verified 02/10/17 10:18 cephalexin monohydrate * AdvReac VOMITING Verified 01/25/17 14:19 [From Keflex] Home Medications: Home Medication List Medication Instructions Recorded Confirmed Last Taken Type Clonazepam 1 mg PO HS 01/07/17 02/10/17 01/13/17 History Lamotrigine 150 mg PO QHS 01/07/17 02/10/17 01/13/17 History Citalopram Hydrobromide 10 mg PO QHS 02/10/17 02/10/17 Unknown History [Citalopram HBr] - History of Present Illness-Neuro Nature of Presenting Problem: Pt is 21 y/o F presents to the ED via EMS for seizure. Pt states she is on Lamictal for seizure. Pt has hx of seizures. Pt denies injury with seizure. Headache Location: denies: frontal, temporal, occipital, parietal, global Severity: reports: mild Onset/Duration: reports: just prior to arrival Timing: reports: intermittent Context: reports: seizure activity Character of Altered Mental Status: reports: N/A Any recent trauma/injury?: reports: none New weakness or altered sensation location:: reports: none Cognitive Baseline: alert, oriented x3 Gait Baseline: walks without assistance Associated Symptoms: reports: seizures. denies: short of breath, headache, decreased ability to walk or stand, fainting, dizziness, confusion, chest pain, neck/back pain, fatigue, fever/chills, insomnia, loss of consciousness, muscle spasms, nausea, numbness in legs/feet, paresthesia, diaphoretic, ringing in ears , sleepy, slurred speech, tingling in legs/feet, trouble walking, vomiting, vision changes, weakness Similar Symptoms Previously?: Yes Recently seen or treated by another doctor?: No - Seizure First time to have a seizure?: No Witnessed seizure?: Yes How many seizure episodes?: 3 Episode details: reports: unknown duration Episode Frequency: occasional episodes Preceding symptoms/context:: none Character of Seizure: reports: generalized shaking all over Post-ictal Symptoms: reports: none Seizure related injury: none Review of Systems - Adult - REVIEW OF SYSTEMS - ADULT Constitutional: reports: no symptoms reported Eyes: reports: no symptoms reported Ears, Nose, Mouth & Throat: reports: no symptoms reported Cardiovascular: reports: no symptoms reported Respiratory: reports: no symptoms reported Gastrointestinal: reports: no symptoms reported Genitourinary: reports: no symptoms reported Musculoskeletal: reports: no symptoms reported Integumentary: reports: no symptoms reported Neurological: reports: seizure. denies: dizziness/vertigo, headache/migraines, syncope Psychiatric: reports: no symptoms reported Endocrine: reports: no symptoms reported Hematologic/Lymphatic: reports: no symptoms reported Allergic/Immunologic: reports: no symptoms reported All Other Systems: Reviewed and Negative Past History - Adult - PAST MEDICAL HISTORY-ADULT Review of Records: reports: Nursing Assessment Review, Medications Reviewed, Social history reviewed & non-contributory. Major Childhood Illnesses: reports: denies history Cardiovascular: reports: denies history Respiratory: reports: denies history Gastrointestinal: reports: denies history Obstetrical/Gynecological: reports: denies history Genitourinary: reports: denies history Musculoskeletal: reports: denies history Neurological: reports: Seizures/Epilepsy (seizures), other (PSEUOD SEIZURES) Psychiatric: reports: anxiety, depression, suicide attempt Endocrine/Immune: reports: denies history Other Conditions: reports: denies history - PRIOR SURGERIES/PROCEDURES Surgical/Procedure History: reports: tonsillectomy, other (wisdom teeth) - PRIOR HOSPITALIZATIONS Prior Hospitalizations: reports: psychiatric or rehab - IMMUNIZATION STATUS Childhood Immunizations: See Nurse Assessment Flu Vaccine: See Nurse Assessment - FAMILY HISTORY Family History: reviewed, not pertinent - SOCIAL HISTORY Smoking: denies Substance Use: denies Living Situation: family Physical Exam- Neurological - Physical Exam-Neuro Initial Vital Signs Reviewed: Yes General Appearance: appears well, alert, no apparent distress Eye Exam: bilateral eye: normal inspection, PERRL, EOMI HENMT: normocephalic/atraumatic, moist mucous membranes, normal ENT inspection, TMs normal, pharynx normal Head Injury: no evidence of injury Neck: non-tender, full range of motion, supple, normal inspection Respiratory: chest non-tender, lungs clear, normal breath sounds, no pleuratic chest pain, no respiratory distress, no accessory muscle use Cardiovascular: normal peripheral pulses, regular rate, rhythm, no edema, no gallop, no JVD, no murmur Abdominal Exam: normal bowel sounds, non tender, soft, no organomegaly, no pulsatile mass Lymphatic: no adenopathy Extremity: normal range of motion, non-tender, no pedal edema, no calf tenderness 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 Exam: normal hearing, normal speech, PERRL Motor/Sensory: no motor deficit, no sensory deficit, no pronator drift Neurologic: grossly normal Integumentary: normal color, normal turgor, warm/dry Psych/Mental Status: normal mood/affect, oriented x 3 Progress - PLAN OF CARE/RESULTS Progress/Plan/Lab Results: Vital Signs - 8 hr 02/10/17 09:12 02/10/17 11:20 Temperature 98.6 F Pulse Rate 100 H 56 L Respiratory Rate 13 14 Blood Pressure 111/61 88/49 O2 Sat by Pulse Oximetry 97 100 Laboratory Results - last 24 hr 02/10/17 02/10/17 02/10/17 09:05 09:05 09:05 WBC 8.59 RBC 4.83 Hgb 14.0 Hct 41.6 MCV 86.1 MCH 29.0 MCHC 33.7 RDW Std Deviation 12.5 Plt Count 327 MPV 9.6 Immature Gran % (Auto) 0.2 Neut % (Auto) 58.9 Lymph % (Auto) 30.0 [place] % (Auto) 5.9 Eos % (Auto) 4.7 Baso % (Auto) 0.3 Immature Gran # (Auto) 0.02 Neut # (Auto) 5.05 Lymph # (Auto) 2.58 [place] # (Auto) 0.51 Eos # (Auto) 0.40 Baso # (Auto) 0.03 Sodium 141 Potassium 4.7 Chloride 104 Carbon Dioxide 20 L Anion Gap 17 BUN 9 Creatinine 0.7 Estimated GFR/1.73 m2 > 60 BUN/Creatinine Ratio 13 Glucose 94 Calculated Osmolality 280 Calcium 9.6 Total Bilirubin 0.20 AST 18 ALT 11 Alkaline Phosphatase 76 Total Protein 7.7 Albumin 4.7 Globulin 3.0 Albumin/Globulin Ratio 2.0 Urine Source CATH Urine Color YELLOW Urine Clarity SL. CLOUDY A Urine pH 5.0 Ur Specific [place] 1.020 Urine Protein NEGATIVE Urine Ketones TRACE Urine Blood NEGATIVE Urine Nitrite NEGATIVE Urine Bilirubin NEGATIVE Urine Urobilinogen NORMAL Urine WBC NEGATIVE Urine Microscopic WBC <10 Ur Epithelial Cells <10 Urine Glucose NEGATIVE Urine Opiates Screen Ur Oxycodone Screen Urine Methadone Screen Ur Barbituates Screen Ur Tricyclics Screen Ur Phencyclidine Scrn Ur Amphetamines Screen U Methamphetamines Scrn Urine MDMA Screen U Benzodiazepines Scrn Urine Cocaine Screen U Cannabinoids Screen 02/10/17 11:36 WBC RBC Hgb Hct MCV MCH MCHC RDW Std Deviation Plt Count MPV Immature Gran % (Auto) Neut % (Auto) Lymph % (Auto) [place] % (Auto) Eos % (Auto) Baso % (Auto) Immature Gran # (Auto) Neut # (Auto) Lymph # (Auto) [place] # (Auto) Eos # (Auto) Baso # (Auto) Sodium Potassium Chloride Carbon Dioxide Anion Gap BUN Creatinine Estimated GFR/1.73 m2 BUN/Creatinine Ratio Glucose Calculated Osmolality Calcium Total Bilirubin AST ALT Alkaline Phosphatase Total Protein Albumin Globulin Albumin/Globulin Ratio Urine Source Urine Color Urine Clarity Urine pH Ur Specific [place] Urine Protein Urine Ketones Urine Blood Urine Nitrite Urine Bilirubin Urine Urobilinogen Urine WBC Urine Microscopic WBC Ur Epithelial Cells Urine Glucose Urine Opiates Screen NONE DETECTED Ur Oxycodone Screen NONE DETECTED Urine Methadone Screen NONE DETECTED Ur Barbituates Screen NONE DETECTED Ur Tricyclics Screen NONE DETECTED Ur Phencyclidine Scrn PRESUMPTIVE POSITIVE A Ur Amphetamines Screen NONE DETECTED U Methamphetamines Scrn NONE DETECTED Urine MDMA Screen NONE DETECTED U Benzodiazepines Scrn PRESUMPTIVE POSITIVE A Urine Cocaine Screen NONE DETECTED U Cannabinoids Screen NONE DETECTED Orders Category Date Time Status CBC WITH ELECTRONIC DIFF [HEME] Stat Lab 02/10/17 09:05 Completed CMP [COMPREHENSIVE METABOLIC PANEL] [CHEM] Stat Lab 02/10/17 09:05 Completed PROLACTIN [HH] Stat Lab 02/10/17 09:05 Received UA NIMS W/REFLEX CULT PL [URINALYSIS] Stat Lab 02/10/17 09:05 Completed URINE DRUG SCREEN PL Stat Lab 02/10/17 11:36 Completed 0.9% Sodium Chloride Inj [Ns] 2,000 ml Med 02/10/17 11:28 Active IV 999 mls/hr Lorazepam [Ativan] Med 02/10/17 09:13 Discontinued 1 mg IV NOW ONE Result Diagrams: 02/10/17 09:05 02/10/17 09:05 - REASSESSMENT Reassessment #1 Time Reassessed: 09:20 Status: other (pt observed to be having probable pseudo seizures as she peeks at me when she thinks i am not looking) Reassessment #2 Time Reassessed: 09:45 (pt again having pseudo seizure after shaking i take her hand over her head and she moves it away from landing on her head in purposeful motion) Reassessment #4 Status: unchanged (discussed with family about pt being able to care for infant and they say that she is never alone with the baby) - CONSULTS/PCP/HOSPITALIST Notification #1 *Consult/PCP/Hospitalist*: Dr. Garcia Time Discussed: 12:36 Reason/Comments: Dr. Bautista consults with Dr. Garcia about admit of PT Consult Disposition: Admit Departure - Departure Time of Disposition Decision: 12:36 DIAGNOSIS: Pseudoseizures Disposition: ADMITTED INPATIENT 09 Certified Medical Emergency: Emergent Condition: Stable Additional Freetext Instructions: ED Follow Up Instructions: You have been treated by a care provider in the Emergency Department. These instructions are being provided to you so you can have an understanding of how to care for yourself upon discharge. Upon discharge from the Emergency Department, you are responsible for making arrangements for follow-up care by a physician of your choice. Take all prescribed medications as directed. Return to the Emergency Department immediately for any new or worsening symptoms. You may call the Physician Referral phone number at [phone] to obtain a list of Physicians who are taking new patients. Referrals and Follow-Ups: Nallely Corona MD [Primary Care Provider] - This chart was documented by the indicated scribe, (Iram Galindo Scribe) and accurately reflects the services I performed and decisions made by , Jose Bautista MD, as attested by the provider's signature.
[2017-02-10] MEDS ORDERED: ZOFRAN IV PRN (17:43)
[2017-02-10] MEDS ORDERED: KEPPRA 1,000 MG in NS 100 ML IV SCH (18:00)
[2017-02-10] MEDS ORDERED: KEPPRA 1,000 MG/NS 1,000 MG/100 ML IVPB IV SCH (18:00)
[2017-02-10] MEDS ORDERED: PROTONIX IV SCH (18:45)
[2017-02-10] MEDS ORDERED: SODIUM CHLORIDE 0.9% INJ SCH (18:45)
[2017-02-10] MEDS: NS 1,000 ML IV SCH (19:39)
[2017-02-10] MEDS: KEPPRA 1,500 MG in NS 100 ML IV SCH (20:40)
[2017-02-10] MEDS ORDERED: CELEXA PO SCH (21:00)
[2017-02-11 06:29] LABS: HEMATOCRIT 35.4 % (37.0-47.0); HEMOGLOBIN 11.7 g/dL (12.0-16.0); MCH 28.3 PG (27-31); MCHC 33.1 g/dL (33-37); MCV 85.5 FL (81-99); MPV 9.7 FL (7.4-10.4); RBC 4.14 XMIL (4.2-5.4)
[2017-02-11 06:45] LABS: AGAP 9; ALBUMIN 3.7 g/dL (3.5-5.0); ALKALINE PHOSPHATASE 62 U/L (32-104); BUN 7 mg/dL (8-22); CALCIUM 8.5 mg/dL (8.8-10.2); CHLORIDE 106 mmol/L (98-107); COSMO 271; GOT 10 U/L (10-30); GPT 8 U/L (10-36); POTASSIUM 3.7 mmol/L (3.5-5.1); SODIUM 137 mmol/L (136-145); TCO2 22 mmol/L (25-35); TOTAL PROTEIN 6.2 g/dL (6.3-8.3)
[2017-02-11] MEDS: KEPPRA 1,500 MG in NS 100 ML IV SCH (08:47)
[2017-02-11] MEDS: NS 1,000 ML IV SCH (08:47)
--- NOTE | 2017-02-11 10:15 | PROGRESS NOTE ---
DATE: 02/11/2017 SUBJECTIVE: The patient currently is sleeping, but she is easily awakened. She had multiple episodes yesterday as noted. PHYSICAL EXAMINATION: Vital signs: Temp 98, pulse 52, respiratory 20, BP 103/39, satting 100% on room air. General: The patient is awake, alert. She is currently in no respiratory distress, pleasant to talk with. Neck: Supple. CV: Regular rate. Chest: Relatively clear. Abdomen: Soft. Extremities: Moves all extremities. Neurological: No changes. LABS: CBC, CMP essentially normal. ASSESSMENT: 1. Pseudoseizures. 2. Acute stress reaction. 3. Chronic depression. PLAN: Forty-five minutes was spent this morning in discussion with mom and daughter regarding seizures, pseudoseizures, stress and the effect on both. Certainly do not feel as though the episodes that she had in the hospital that were witnessed by staff were true seizures, although it is possible that she is having occasional true seizures at home. During one of these events, she had rhythmical shaking of both hands and feet, and when one hand was held, she quickly pulled it away from the nurse practitioner and then started shaking again. During none of these episodes did she have loss of bowel or bladder function. In addition, she did not have any postictal time period after her seizure-type activity. Hopefully she can discharge home later this afternoon and will follow up outpatient with her psychiatrist, Dr. Serrano, and her primary care. cc: Johnnie Garcia MD
[2017-02-11 10:53] VITALS: BP 87/56
--- NOTE | 2017-03-12 14:03 | HISTORY AND PHYSICAL ---
CHIEF COMPLAINT: Seizure. HISTORY OF PRESENT ILLNESS: Patient is a 21-year-old female who presented to [facility] Emergency Department with the family noting she had a seizure. States she had been on Lamictal, has a history of seizures. Denies any current injury. ALLERGIES: Peanuts causing anaphylaxis, morphine, IVP dye causing hives, Keflex causing vomiting. MEDICATIONS: Klonopin, Lamictal 150, Celexa 10. REVIEW OF SYSTEMS: No current headaches, blurred vision, change in vision. No focalized numbness, tingling, weakness. Denies any loss of bowel or bladder during her seizure episode. Denies any loss of consciousness. Denies any fevers, chills or other upper respiratory type symptoms. PAST MEDICAL HISTORY: Significant for seizures and pseudoseizures, history depression, suicide attempt. SURGICAL HISTORY: She has had a tonsillectomy and wisdom teeth removed. FAMILY HISTORY: Noncontributory. SOCIAL HISTORY: Patient lives at home. Denies illicit drug use. PHYSICAL EXAMINATION: VITAL SIGNS: Temperature 98.6, degrees, pulse 100, respiratory 13, BP 111/61. GENERAL: Patient is awake, alert, oriented. She is currently in no real respiratory distress. Speech is regular. Memory is intact. NECK: Supple. CV: Regular rate. CHEST: Relatively clear. ABDOMEN: Soft. EXTREMITIES: Moves all extremities. NEUROLOGIC: No focal neurological changes. She is awake, alert, moves all extremities. LABORATORIES: CBC, CMP essentially normal. CT of the head negative. ASSESSMENT: Seizure. Most likely pseudoseizure. PLAN: Will admit patient in the hospital overnight for observation. cc: Johnnie Garcia MD
--- NOTE | 2017-03-13 13:02 | DISCHARGE SUMMARY ---
ADMISSION DATE: 02/10/2017 DISCHARGE DATE: 02/11/2017 DISCHARGE DIAGNOSES: 1. Seizure. 2. Acute stress reaction. 3. Chronic depression. 4. Known history of seizures. CONSULTATIONS: None. PROCEDURES: None. BRIEF HOSPITAL COURSE: Patient is a 21-year-old female, who was admitted as on the [facility]. Treated in usual fashion. As noted, on a progress note dated 02/11 she was having atypical seizure-type activity which was felt to be most likely pseudoseizures as she was awake and could change her symptoms during the seizure. She had an uneventful hospital course. DISPOSITION: Patient will be discharged home to follow up outpatient with her psychiatrist as well as her neurologist. TIME SPENT: 45 minutes in discharge planning and instructions. cc: Johnnie Garcia MD
== END 2017-02-11 14:17 | disposition home or self-care (01) ==
LOC: P.ED 09:10 → P.MEDSURG 09:10
PROVIDERS: ATTEND Family Medicine

== ENCOUNTER 2017-02-16 22:17 | Inpatient (IN) ==
[2017-02-16 23:22] LABS: BILIRUBIN URINE NEGATIVE (NEGATIVE); BLOOD URINE NEGATIVE (NEGATIVE); CLARITY HAZY (CLEAR); COLOR YELLOW; GLUCOSE URINE NEGATIVE (NEGATIVE); LEUKOCYTES URINE 2+ (NEGATIVE); NITRITE URINE NEGATIVE (NEGATIVE); PROTEIN URINE NEGATIVE (NEGATIVE); UROBILINOGEN URINE NORMAL
[2017-02-16 23:23] LABS: BASO% 1.4 % (0.0-0.8); EOS# 0.22 X1000 (0.0-0.7); EOS% 3.9 % (0.0-10.0); HEMATOCRIT 36.3 % (37.0-47.0); HEMOGLOBIN 12.4 g/dL (12.0-16.0); LYMPH# 2.17 X1000 (1.2-3.4); LYMPH% 38.4 % (20.5-51.1); MANUAL DIFF NEEDED? NO; MCH 28.7 PG (27-31); MCHC 34.2 g/dL (33-37); MONO# 0.41 X1000 (0.11-0.59); MONO% 7.3 % (1.7-9.3); MPV 8.9 FL (7.4-10.4); PLT 262 X1000 (130-400); RBC 4.32 XMIL (4.2-5.4)
[2017-02-16 23:30] LABS: URINE WBC <10 /HPF (<10)
[2017-02-16 23:31] LABS: URINE CULTURE PL NEEDED? YES; URINE EPITHELIAL CELLS <10 /HPF (<10); URINE RBC <10 /HPF (<10); URINE SOURCE CLEAN CATCH
[2017-02-16 23:34] LABS: UR AMPHETAMINES QUAL NONE DETECTED (NONE DETECT); UR BARBITUATES QUAL NONE DETECTED (NONE DETECT); UR BENZODIAZEPIN QUAL PRESUMPTIVE POSITIVE (NONE DETECT); UR CANNABINOIDS QUAL NONE DETECTED (NONE DETECT); UR COCAINE QUAL NONE DETECTED (NONE DETECT); UR MDMA QUAL NONE DETECTED (NONE DETECT); UR METHADONE QUAL NONE DETECTED (NONE DETECT); UR METHAMPHETAMINE QUAL NONE DETECTED (NONE DETECT); UR OPIATES QUAL NONE DETECTED (NONE DETECT); UR OXYCODONE QUAL NONE DETECTED (NONE DETECT); UR PCP QUAL PRESUMPTIVE POSITIVE (NONE DETECT); UR TCA QUAL NONE DETECTED (NONE DETECT)
[2017-02-16 23:37] LABS: ACETAMINOPHEN < 1.2 ug/mL (10-30)
[2017-02-16 23:44] LABS: AGAP 10; ALBUMIN 4.1 g/dL (3.5-5.0); ALKALINE PHOSPHATASE 64 U/L (32-104); BUN 11 mg/dL (8-22); CHLORIDE 101 mmol/L (98-107); COSMO 271; GOT 15 U/L (10-30); GPT 11 U/L (10-36); POTASSIUM 3.7 mmol/L (3.5-5.1); SODIUM 136 mmol/L (136-145); TCO2 25 mmol/L (25-35); TOTAL BILIRUBIN < 0.15 mg/dL (0.20-1.00); TOTAL PROTEIN 7.4 g/dL (6.3-8.3)
[2017-02-17 00:05] LABS: FREE T4 1.38 ng/dL (0.93-1.70)
[2017-02-17] MEDS ORDERED: ATIVAN ONE ×2 (03:26→04:29)
[2017-02-17] MEDS ORDERED: ATIVAN IM ONE (03:36)
[2017-02-17] MEDS ORDERED: KEPPRA ONE ×2 (03:52→04:25)
[2017-02-17] MEDS ORDERED: KEPPRA PO ONE (03:52)
--- NOTE | 2017-02-17 03:52 | PROVIDER DOCUMENTATION ---
This chart was entered by Laly Hyde Scribe, acting as scribe for Parker Elizondo MD. HPI-Psychological Disorder - General Chief Complaint: Psych Stated Complaint: PSYCH Time Seen by Provider: 02/16/17 22:50 Source: patient Allergies/Adverse Reactions: Patient Allergies Allergy/AdvReac Type Severity Reaction Status Date / Time peanut Allergy Severe ANAPHYLAXIS Verified 02/16/17 22:40 morphine Allergy Intermediate HIVES Verified 02/16/17 22:40 Iodinated Contrast Media - Allergy Mild HIVES Verified 02/16/17 22:40 Oral and nut - unspecified Allergy ANAPHYLAXIS Verified 02/16/17 22:40 cephalexin monohydrate * AdvReac VOMITING Verified 02/16/17 22:40 [From [facility]] Home Medications: Home Medication List Medication Instructions Recorded Confirmed Last Taken Type Clonazepam 1 mg PO HS 01/07/17 02/16/17 01/13/17 History Citalopram Hydrobromide 10 mg PO QHS #30 tablet 02/11/17 02/16/17 Unknown Rx [Citalopram HBr] Lamotrigine 150 mg PO QHS #30 tablet 02/11/17 02/16/17 Unknown Rx Levetiracetam 1 tab PO BID #60 tablet 02/11/17 02/16/17 Unknown Rx - History of Present Illness-Psych Nature of Presenting Problem: PT IS A 21YOF PRESENTING TO THE ED C/O DEPRESSION. PT STATES SHE IS MORE DEPRESSED TODAY THAN NORMAL, PT HAS A HX OF SZ AND BIPOLAR. PT STATES SHE HAS A SEIZURE EVERYDAY AND THAT SHE ISN'T SI OR HI JUST MORE DEPRESSED. SHE DENIES ANY HISTORY OF SUBSTANCE ABUSE OR HALLUCINATIONS. NO OTHER COMPLAINT AT THIS TIME Onset/Duration: reports: 4-6 hours ago Timing: reports: still present Severity: reports: mild Situational problems related to:: reports: N/A Psychiatric Complaints: reports: depressed. denies: angry, hallucinating, homicidal thoughts, suicidal ideation Substance Use: reports: none/never, denies Previous psych related hospitalizations?: No Patient arrived by:: private car Similar Symptoms Previously?: Yes Recently seen or treated by another doctor?: No Review of Systems - Adult - REVIEW OF SYSTEMS - ADULT Constitutional: reports: no symptoms reported Eyes: reports: no symptoms reported Ears, Nose, Mouth & Throat: reports: no symptoms reported Cardiovascular: reports: no symptoms reported Respiratory: reports: no symptoms reported Gastrointestinal: reports: no symptoms reported Genitourinary: reports: no symptoms reported Musculoskeletal: reports: no symptoms reported Integumentary: reports: no symptoms reported Neurological: reports: no symptoms reported Psychiatric: reports: see HPI, anti-depressant use, depression. denies: alcohol /drug dependence, insomnia, suicidal thoughts Endocrine: reports: no symptoms reported Hematologic/Lymphatic: reports: no symptoms reported Allergic/Immunologic: reports: no symptoms reported All Other Systems: Reviewed and Negative Past History - Adult - PAST MEDICAL HISTORY-ADULT Review of Records: reports: Old Records Reviewed, Nursing Assessment Review, Medications Reviewed, Social history reviewed & non-contributory. Major Childhood Illnesses: reports: denies history Cardiovascular: reports: denies history Respiratory: reports: denies history Gastrointestinal: reports: denies history Obstetrical/Gynecological: reports: denies history Genitourinary: reports: denies history Musculoskeletal: reports: denies history Neurological: reports: Seizures/Epilepsy (seizures), other (PSEUOD SEIZURES) Psychiatric: reports: anxiety, depression, suicide attempt Endocrine/Immune: reports: denies history Other Conditions: reports: denies history - PRIOR SURGERIES/PROCEDURES Surgical/Procedure History: reports: tonsillectomy, other (wisdom teeth) - PRIOR HOSPITALIZATIONS Prior Hospitalizations: reports: psychiatric or rehab - IMMUNIZATION STATUS Childhood Immunizations: See Nurse Assessment Flu Vaccine: See Nurse Assessment - FAMILY HISTORY Family History: reviewed, not pertinent - SOCIAL HISTORY Smoking: denies, non-smoker Substance Use: none/never, denies Alcohol Use Frequency: never Living Situation: family Physical Exam-Psych Focus - Physical Exam-Psych Initial Vital Signs Reviewed: Yes Appearance: appropriate appearance, appropriate insight, neat, alert, mild distress. negative: denies illness Neurological: alert, calm, targeting acquisition officer II-XII nml as tested, oriented x 3, depressed affect, flat. negative: normal mood/affect Behavior/Eye Contact/Speech: cooperative, good eye contact, normal speech. negative: avoids eye contact Thoughts/Hallucinations: normal thought pattern, no apparent hallucination. negative: auditory hallucinations, tactile hallucinations, visual hallucinations HENMT: normocephalic/atraumatic, moist mucous membranes, normal ENT inspection, TMs normal, pharynx normal Neck: non-tender, full range of motion, supple, normal inspection Respiratory: chest non-tender, lungs clear, normal breath sounds, no pleuratic chest pain, no respiratory distress, no accessory muscle use Cardiovascular: normal peripheral pulses, regular rate, rhythm, no edema, no gallop, no JVD, no murmur Abdominal Exam: normal bowel sounds, non tender, soft, no organomegaly, no pulsatile mass Lymphatic: no adenopathy. negative: axilla node tender Back Exam: normal inspection, no CVA tenderness, no vertebral tenderness Extremity: normal range of motion, non-tender, normal gait, normal inspection, no pedal edema, no calf tenderness, normal capillary refill, pelvis stable Integumentary: normal color, normal turgor, warm/dry Progress - PLAN OF CARE/RESULTS Progress/Plan/Lab Results: Vital Signs - 8 hr 02/16/17 22:33 02/17/17 01:09 02/17/17 03:32 Temperature 98.0 F Pulse Rate 77 71 80 Respiratory Rate 18 18 20 Blood Pressure 110/67 91/56 119/60 O2 Sat by Pulse Oximetry 97 96 97 Laboratory Results - last 24 hr 02/16/17 02/16/17 02/16/17 22:49 22:49 22:49 WBC RBC Hgb Hct MCV MCH MCHC RDW Std Deviation Plt Count MPV Immature Gran % (Auto) Neut % (Auto) Lymph % (Auto) [place] % (Auto) Eos % (Auto) Baso % (Auto) Immature Gran # (Auto) Neut # (Auto) Lymph # (Auto) [place]cl[place] # (Auto) Eos # (Auto) Baso # (Auto) Sodium Potassium Chloride Carbon Dioxide Anion Gap BUN Creatinine Estimated GFR/1.73 m2 BUN/Creatinine Ratio Glucose Calculated Osmolality Calcium Total Bilirubin AST ALT Alkaline Phosphatase Total Protein Albumin Globulin Albumin/Globulin Ratio TSH Free T4 Urine Source CLEAN CATCH Urine Color YELLOW Urine Clarity HAZY A Urine pH 6.0 Ur Specific [place] 1.020 Urine Protein NEGATIVE Urine Ketones NEGATIVE Urine Blood NEGATIVE Urine Nitrite NEGATIVE Urine Bilirubin NEGATIVE Urine Urobilinogen NORMAL Urine Microscopic RBC <10 Urine WBC 2+ A Urine Microscopic WBC <10 Ur Epithelial Cells <10 Urine Bacteria 4+ Urine Glucose NEGATIVE Urine Test NEGATIVE Salicylates Urine Opiates Screen NONE DETECTED Ur Oxycodone Screen NONE DETECTED Urine Methadone Screen NONE DETECTED Acetaminophen Ur Barbituates Screen NONE DETECTED Ur Tricyclics Screen NONE DETECTED Ur Phencyclidine Scrn PRESUMPTIVE POSITIVE A Ur Amphetamines Screen NONE DETECTED U Methamphetamines Scrn NONE DETECTED Urine MDMA Screen NONE DETECTED U Benzodiazepines Scrn PRESUMPTIVE POSITIVE A Urine Cocaine Screen NONE DETECTED U Cannabinoids Screen NONE DETECTED Plasma/Serum Ethyl Alc 02/16/17 02/16/17 02/16/17 23:05 23:05 23:05 WBC RBC Hgb Hct MCV MCH MCHC RDW Std Deviation Plt Count MPV Immature Gran % (Auto) Neut % (Auto) Lymph % (Auto) [place] % (Auto) Eos % (Auto) Baso % (Auto) Immature Gran # (Auto) Neut # (Auto) Lymph # (Auto) [place] # (Auto) Eos # (Auto) Baso # (Auto) Sodium 136 Potassium 3.7 Chloride 101 Carbon Dioxide 25 Anion Gap 10 BUN 11 Creatinine 0.6 Estimated GFR/1.73 m2 > 60 BUN/Creatinine Ratio 18 Glucose 99 Calculated Osmolality 271 Calcium 9.0 Total Bilirubin < 0.15 L AST 15 ALT 11 Alkaline Phosphatase 64 Total Protein 7.4 Albumin 4.1 Globulin 3.0 Albumin/Globulin Ratio 1.0 TSH 1.06 Free T4 1.38 Urine Source Urine Color Urine Clarity Urine pH Ur Specific [place] Urine Protein Urine Ketones Urine Blood Urine Nitrite Urine Bilirubin Urine Urobilinogen Urine Microscopic RBC Urine WBC Urine Microscopic WBC Ur Epithelial Cells Urine Bacteria Urine Glucose Urine Test Salicylates Urine Opiates Screen Ur Oxycodone Screen Urine Methadone Screen Acetaminophen Ur Barbituates Screen Ur Tricyclics Screen Ur Phencyclidine Scrn Ur Amphetamines Screen U Methamphetamines Scrn Urine MDMA Screen U Benzodiazepines Scrn Urine Cocaine Screen U Cannabinoids Screen Plasma/Serum Ethyl Alc 02/16/17 02/16/17 23:05 23:05 WBC 5.65 RBC 4.32 Hgb 12.4 Hct 36.3 L MCV 84.0 MCH 28.7 MCHC 34.2 RDW Std Deviation 12.2 Plt Count 262 MPV 8.9 Immature Gran % (Auto) 0.0 Neut % (Auto) 49.0 Lymph % (Auto) 38.4 [place]cl[place] % (Auto) 7.3 Eos % (Auto) 3.9 Baso % (Auto) 1.4 H Immature Gran # (Auto) 0.00 Neut # (Auto) 2.77 Lymph # (Auto) 2.17 [place]cl[place] # (Auto) 0.41 Eos # (Auto) 0.22 Baso # (Auto) 0.08 Sodium Potassium Chloride Carbon Dioxide Anion Gap BUN Creatinine Estimated GFR/1.73 m2 BUN/Creatinine Ratio Glucose Calculated Osmolality Calcium Total Bilirubin AST ALT Alkaline Phosphatase Total Protein Albumin Globulin Albumin/Globulin Ratio TSH Free T4 Urine Source Urine Color Urine Clarity Urine pH Ur Specific [place] Urine Protein Urine Ketones Urine Blood Urine Nitrite Urine Bilirubin Urine Urobilinogen Urine Microscopic RBC Urine WBC Urine Microscopic WBC Ur Epithelial Cells Urine Bacteria Urine Glucose Urine Test Salicylates < 3.00 L Urine Opiates Screen Ur Oxycodone Screen Urine Methadone Screen Acetaminophen < 1.2 L Ur Barbituates Screen Ur Tricyclics Screen Ur Phencyclidine Scrn Ur Amphetamines Screen U Methamphetamines Scrn Urine MDMA Screen U Benzodiazepines Scrn Urine Cocaine Screen U Cannabinoids Screen Plasma/Serum Ethyl Alc Orders Category Date Time Status ACETAMINOPHEN [TDM] Stat Lab 02/16/17 23:05 Completed ALCOHOL BLOOD Stat Lab 02/16/17 23:05 Completed CBC WITH ELECTRONIC DIFF [HEME] Stat Lab 02/16/17 23:05 Completed COMPREHENSIVE METABOLIC PANEL [CHEM] Stat Lab 02/16/17 23:05 Completed FREE T4 Stat Lab 02/16/17 23:05 Results TEST-URINE [PREG] Stat Lab 02/16/17 22:49 Completed SALICYLATES [TDM] Stat Lab 02/16/17 23:05 Completed TSH Stat Lab 02/16/17 23:[address] W/POSS RFLX CULT [URINALYSIS] Stat Lab 02/16/17 22:49 Completed URINE CULTURE [RM] Routine Lab 02/16/17 23:31 Ordered [address] DRUG SCREEN [address] Stat Lab 02/16/17 22:49 Completed VITAMIN B12 Stat Lab 02/16/17 23:05 Results Lorazepam [Ativan] Med 02/17/17 03:26 Discontinued 2 mg .ROUTE .STK-MED ONE Lorazepam [Ativan] Med 02/17/17 03:36 Discontinued 2 mg IM NOW ONE EKG [EKG] Stat Ther 02/16/17 22:47 Ordered Result Diagrams: 02/16/17 23:05 02/16/17 23:05 - REASSESSMENT Reassessment #1 Time Reassessed: 03:30 Reassessment Comment: SIEZURE WITH PHYSICALLY AGGRESSIVE BEHAVIOR Departure - Departure Time of Disposition Decision: 05:00 DIAGNOSIS: Epilepsy with intractable epilepsy, poorly controlled Depression, major Qualifiers: Major depression recurrence: recurrent Active/Remission status: currently active Major depression episode severity: severe Psychotic features: without psychotic features Qualified Code(s): F33.2 - Major depressive disorder, recurrent severe without psychotic features Disposition: HOME 01 Certified Medical Emergency: Emergent Condition: Fair Additional Freetext Instructions: Follow up with Dr. Serrano as soon as possible. Referrals and Follow-Ups: Nallely Corona MD [Primary Care Provider] - Sudarshan Serrano MD [STAFF PHYSICIAN] - - Critical Care Note This patient required my direct personal management.: Yes This chart was documented by the indicated scribe, (Laly Hyde Scribe) and accurately reflects the services I performed and decisions made by me, Parker Elizondo MD, as attested by the provider's signature.
[2017-02-17] MEDS ORDERED: LR 1,000 ML IV PRN (04:23)
[2017-02-17] MEDS ORDERED: KEPPRA 500 MG in NS 100 ML IV ONE (04:23)
[2017-02-17] MEDS ORDERED: NS 100 ML ONE (04:25)
[2017-02-17] MEDS ORDERED: ATIVAN IV ONE ×2 (04:31→04:40)
--- NOTE | 2017-02-17 05:06 | ED EKG INTERP ---
This chart was entered by Laly Hyde Scribe, acting as scribe for Parker Elizondo MD. EKG Interpretation - EKG Time of EKG reading by physician:: 22:49 EKG Read and Signed by:: Parker Elizondo EKG Interpretation (*Must complete 3 of following elements*): Abnormal Rate: 73 Rhythm: NSR W/ SINUS ARRYTHMIA [place]: normal QRS: other (POOR R WAVE PROGRESSION) Departure - Departure Time of Disposition Decision: 05:05 DIAGNOSIS: Epilepsy with intractable epilepsy, poorly controlled Depression, major Qualifiers: Major depression recurrence: recurrent Active/Remission status: currently active Major depression episode severity: severe Psychotic features: without psychotic features Qualified Code(s): F33.2 - Major depressive disorder, recurrent severe without psychotic features Disposition: ADMITTED INPATIENT 09 Certified Medical Emergency: Emergent Condition: Fair Additional Freetext Instructions: Follow up with Dr. Serrano as soon as possible. ED Follow Up Instructions: You have been treated by a care provider in the Emergency Department. These instructions are being provided to you so you can have an understanding of how to care for yourself upon discharge. Upon discharge from the Emergency Department, you are responsible for making arrangements for follow-up care by a physician of your choice. Take all prescribed medications as directed. Return to the Emergency Department immediately for any new or worsening symptoms. You may call the Physician Referral phone number at [phone] to obtain a list of Physicians who are taking new patients. Referrals and Follow-Ups: Sudarshan Serrano MD [STAFF PHYSICIAN] - Nallely Corona MD [Primary Care Provider] - Discharge Education: Epilepsy, [id number], Depression, Adult, [id number] - Critical Care Note This patient required my direct personal management.: Yes Total Time (mins): 360 Critical Care Statement: This patient required my direct personal management to treat or rule out processes, the absence of which, could potentiallly result in sudden, clinically significant life or limb threatening deterioration. This chart was documented by the indicated scribe, (Laly Hyde Scribe) and accurately reflects the services I performed and decisions made by me, Parker Elizondo MD, as attested by the provider's signature.
[2017-02-17] MEDS ORDERED: ZOFRAN IV PRN (05:07)
[2017-02-17] MEDS ORDERED: NS 1,000 ML IV ONE (05:07)
[2017-02-17] MEDS ORDERED: ATIVAN IV PRN (05:07)
[2017-02-17] MEDS ORDERED: TYLENOL PO PRN (05:07)
--- NOTE | 2017-02-17 06:10 | EKG Report ---
Test Performed on : 02/16/2017 10:49:21 PM Test Reason : psych Blood Pressure : / mmHG Vent. Rate : 073 BPM Atrial Rate : 073 BPM P-R Int : 162 ms QRS Dur : 092 ms QT Int : 386 ms P-R-T Axes : 026 027 033 degrees QTc Int : 425 ms Normal sinus rhythm. with sinus arrhythmia. Septal infarct , age undetermined Abnormal ECG When compared with ECG of 25-JAN-2017 15:11, No significant change was found Unconfirmed Result
[2017-02-17] MEDS ORDERED: LAMICTAL PO SCH ×2 (09:00→21:00)
[2017-02-17] MEDS ORDERED: KEPPRA PO SCH ×3 (09:30→21:00)
[2017-02-17] MEDS ORDERED: DEPAKOTE ER PO ONE (12:38)
--- NOTE | 2017-02-17 12:48 | HISTORY AND PHYSICAL ---
PRIMARY CARE PHYSICIAN: Dr. Nallely Corona. PSYCHIATRIST: Dr. Bower. CHIEF COMPLAINT: Increased depression and having seizures daily. HISTORY OF PRESENTING ILLNESS: This is a 21-year-old, female who presented to [facility] ER with complaints of increased depression stating that she did not feel suicidal or homicidal just increased depression. States she is followed by her psychiatrist and that also she has been having "20 seizures" a day so she was admitted to the intensive care unit for further evaluation and treatment. It is noted that the patient states that she has been taking her medications as prescribed and patient as I was walking in the room began having a seizure but when I began talking with her she woke up, talked normally, had no postictal signs of seizure, was alert, oriented and answered all questions appropriately. PAST MEDICAL HISTORY: Seizures and bipolar. PAST SURGICAL HISTORY: Tonsillectomy. FAMILY HISTORY: Noncontributory. SOCIAL HISTORY: She currently lives with family. Denies any tobacco, alcohol, or illicit drug use. ALLERGIES TO: Peanuts, morphine, iodinated contrast media, oral and IV, unspecified nut and Keflex. HOME MEDICATIONS: She takes citalopram 10 mg p.o. at bedtime, clonazepam 1 mg p.o. at bedtime, lamotrigine 150 mg p.o. at bedtime and Keppra 1000 mg p.o. b.i.d. LABORATORY DATA: Showed a white blood cell count of 5.65, a hemoglobin of 12.4 , hematocrit 36.3, platelets 262,000. Sodium of 136, potassium 3.7, chloride 101, CO2 25, BUN of 11, creatinine of 0.6, glucose of 99. The TSH was 1.06, free T4 1.38. Urinalysis showed 2+ white blood cells, 4+ bacteria. Otherwise, negative. A urine test was negative. Urine drug screen was presumptive positive for phencyclidine and benzodiazepines. Serum alcohol level showed none detected. Salicylate level was less than 3. Acetaminophen level less than 1.2. REVIEW OF SYSTEMS: She denied any blurred vision, dizziness, chest pain, coughing, shortness of breath. She denies any abdominal pain, constipation, diarrhea, burning or hurting with urination. PHYSICAL EXAMINATION: On arrival to the emergency room she had a temperature of 98.0 degrees, pulse 77 , respirations 18, blood pressure 110/67, saturating 97% on room air. GENERAL: This is a 21-year-old, female who is lying in the bed. When I initially walked in the room she was lying with her eyes closed. According to the nurse had some shaking and what the patient states was a seizure but when I spoke her name she opened her eyes, sat up in the bed, and answered all my questions appropriately stating that she had been feeling sad for a while. Because she is having "20 grand mal seizures" a day. HEENT: Normocephalic and atraumatic. Pupils are equal, round, reactive to light. The extraocular movements are intact. Oropharynx and nares are clear. NECK: Supple. LUNGS: Clear to auscultation bilaterally with equal lung expansion and chest wall movement. HEART: With regular rate and rhythm. No murmurs, rubs, or gallops. ABDOMEN: Soft, nontender, nondistended. Bowel sounds are present x4 quadrants. EXTREMITIES: No clubbing, cyanosis, or edema. NEUROLOGICAL: The cranial nerves 2-12 appear grossly intact. ASSESSMENT: 1. Depression. 2. 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 3. History of bipolar. 4. Possible UTI. PLAN: She was admitted to the intensive care unit. Placed on neuro checks q.1 hour. Was initially placed in soft wrist restraints due to injury to herself. This a.m., she is alert and awake. No restraints in use currently. We are obtaining a urine culture prior to placing her on any antibiotics as otherwise she is asymptomatic. We will continue her home medications. Place her on a regular diet. She is on normal saline at 100 mL an hour. Once she is medically cleared we will look at a psychiatric consult from [facility] . Will obtain a Keppra level. Dictated by ELIAS Dalton for Casey Santiago MD cc: ELIAS Dalton MD Lindsay E. Smith, MD Bryant K. Mahaffey, MD agree with above, will repeat, eeg, discussed with dr bower, he recommended to add depakote and follow [facility]
[2017-02-17] MEDS ORDERED: KEPPRA 1,000 MG in NS 100 ML IV SCH (16:00)
[2017-02-17] MEDS ORDERED: CELEXA PO SCH (21:00)
[2017-02-17] MEDS ORDERED: KLONOPIN PO SCH (21:00)
[2017-02-17] MEDS: KEPPRA PO SCH (21:47)
[2017-02-18] MEDS: KEPPRA PO SCH (08:54)
[2017-02-18] MEDS ORDERED: NS 1,000 ML IV ONE (09:55)
[2017-02-18 16:11] VITALS: BP 97/57
--- NOTE | 2017-02-18 23:41 | EEG REPORT ---
DATE: 02/17/2017 COMMENT: This is a digitally recorded EEG on a 21-year-old patient with episodes of likely nonseizure etiology. FINDINGS: During waking, low amplitude polymorphic and rhythmic theta frequencies are present across the hemispheres. There is muscle contraction artifact in the background throughout the record. There was not definite sustained posterior dominant rhythm identified. As photic stimulation was initiated, eye blink and then other movement artifacts became prominent, and near the end of photic stimulation, movement artifact obscured the record. There is clear recording of normal EEG for approximately 90 seconds after photic stimulation was stopped, before the onset of movement artifact to the point that the EEG could no longer be interpreted. INTERPRETATION: Normal EEG. CORRELATION: There is nothing on this record to establish the presence of a seizure disorder. cc: MD Casey Manriquez III, MD
[2017-02-19] MEDS ORDERED: DEPAKOTE ER PO SCH ×2 (09:00)
--- NOTE | 2017-02-19 10:02 | DISCHARGE SUMMARY ---
ADMISSION DATE: 02/17/2017 DISCHARGE DATE: 02/18/2017 DISCHARGE DIAGNOSES: 1. Pseudoseizures. 2. Possible depression/anxiety. 3. Bipolar. HOSPITAL COURSE: Briefly, the patient was admitted for recurrent seizure activity reportedly up to 20 episodes. She had been recently admitted for them, and it was felt to be pseudoseizures at that time. The patient was given her Keppra and Ativan and had control of her seizures. She had a couple more seizures while she was here, including 1 that was done while she was getting an EEG. The EEG was being completed. Tech described that the test was almost over, and then the patient started to have a convulsive episode while she was getting the EEG. Results are still pending, as well as a Keppra level was still pending. In any case, I discussed the case with Dr. Serrano who happened to be on site, and he just recommended starting Depakote which may also help with her bipolar disorder. So, we started that at 750 daily. DISCHARGE MEDICATIONS: 1. Celexa 10 daily. 2. Klonopin 1 daily. 3. Depakote 750 daily. 4. Lamictal 150 at night. 5. Keppra 1 g p.o. b.i.d. She did develop some transient hypotension, but was not orthostatic based on her blood pressure in any case. DISCHARGE CONDITION: Stable. She will follow up with Dr. Serrano and Dr. Nallely Corona. TIME SPENT: 32 minute discharge. cc: Casey Santiago MD
== END 2017-02-18 16:10 | disposition home or self-care (01) ==
LOC: P.ED 22:17 → P.ICU 02-17 05:52 → SUATTDRO 02-17 05:52
PROVIDERS: ATTEND Internal Medicine